=== PATIENT | male | born 1970 | race Caucasian/White ===

== ENCOUNTER 2017-09-26 08:50 | Emergency (ER) | payer MEDICAID ==
[2017-09-26 11:02] LABS: BASOPHIL % 0.6 % (0-2); PLATELET COUNT 378 x10^3mcL (130-400); RED CELL DISTRIBUTION WIDTH 13.9 % (11.5-14.5)
[2017-09-26 11:08] LABS: CALCIUM 8.7 mg/dL (8.5-10.1); CARBON DIOXIDE 32.4 mmol/L (21-32); CHLORIDE SERUM 103 mmol/L (98-107); CREATININE SERUM 0.8 mg/dL (0.7-1.3); GFR1 > 60 mL/min; GLUCOSE SERUM 105 mg/dL (74-106); POTASSIUM SERUM 3.7 mmol/L (3.5-5.1); SODIUM SERUM 141 mmol/L (136-145)
[2017-09-26 11:12] LABS: ALBUMIN 4.5 g/dL (3.4-5.0); ALKALINE PHOSPHATASE 71 U/L (46-116); ALT/SGPT 28 U/L (16-63); AST/SGOT 32 U/L (15-37); BILIRUBIN TOTAL 0.2 mg/dL (0.20-1.00); LIPASE 142 IU/L (73-393); TOTAL PROTEIN, SERUM 8.1 g/dL (6.4-8.2); TRIGLYCERIDES 168 mg/dL (<150)
[2017-09-26 11:14] LABS: CHOLESTEROL 237 mg/dL (<200); CHOLESTEROL/HDL RATIO 3.8; HDL CHOLESTEROL 63 mg/dL (40-60)
[2017-09-26 11:28] LABS: FREE T4 0.77 ng/dL (0.76-1.46); FREE THYROXINE INDEX 1.7 ug/dL (1.4-4.5); T4(THYROXINE) 5.3 ug/dL (4.7-13.3)
[2017-09-26 11:30] LABS: T3 TOTAL 0.96 ng/mL
[2017-09-26 11:30] LABS: UA SPECIFIC GRAVITY 1.015 (1.005-1.035); microscopic required? YES; urine erythrocyte TRACE (NEGATIVE)
[2017-09-26 11:32] LABS: AMPHETAMINE QUAL UR NONE DETECTED (NEG <=1000)
[2017-09-26 14:14] VITALS: BP 123/87
== END 2017-09-26 14:14 | disposition home or self-care (01) ==
LOC: ED 08:50
PROVIDERS: Specialist
DX: F10.129 Alcohol abuse with intoxication, unspecified (principal)
CPT/HCPCS: 83880; 84439; J2060; J3411; J3475; J3490; J7030; Q0092